=== PATIENT | female | born 1985 | race Caucasian/White ===

== ENCOUNTER 2022-05-13 14:22 | Emergency (ER) | payer OTHER, SELFPAY ==
[2022-05-13 14:27] VITALS: BP 115/70; PULSE 63; RESP 16; TEMP 36.6; O2SAT 100; BMI 24.7
--- NOTE | 2022-05-13 14:45 | DI.RAD.S_ITS ---
PROCEDURE: XR RIBS RT 2V INDICATIONS: pain with cough TECHNIQUE: 3 views of the right ribs were acquired. COMPARISON: None. FINDINGS: Surgical changes and devices: None. Bones and chest wall: No fractures or dislocations. No suspicious bony lesions. Overlying soft tissues appear unremarkable. Lungs and pleura: The visualized lung appears clear. No pleural effusions or pneumothorax are visible. IMPRESSION: Normal rib radiographs. No evidence of rib fracture. Approved by: Nithin Real M.D. on 05/13/2022 at 14:20
[2022-05-13 15:33] VITALS: BP 110/61; PULSE 53; RESP 15; O2SAT 95
[2022-05-13] MEDS: AMOXICILLIN 250 MG CAPSULE 1000 MG PO (16:39)
[2022-05-13] MEDS: DEXAMETHASONE 10 MG/ML VIAL PO (16:39)
[2022-05-13] MEDS: KETOROLAC 10 MG TABLET PO (16:39)
[2022-05-13 17:08] VITALS: BP 113/60; PULSE 64; RESP 17; O2SAT 98
--- NOTE | 2022-05-13 17:15 | ED_ITS ---
HPI - Chest Pain <LEONOR Valencia - Last Filed: 05/13/22 17:22> General Chief Complaint: Chest Pain Stated Complaint: Rt side rib fracture? maybe Time Seen by Provider: 05/13/22 15:35 Source: patient Mode of arrival: Ambulatory Limitations: no limitations History of Present Illness HPI narrative: This is a 28 year female presents to the emergency department complaining of right-sided rib pain which she has had for the last few weeks but states that she coughed yesterday in cause something to change were now she has sharp pain in this right lower lung space with deep inspiration. She denies shortness of breath, wheezing, history of asthma or COPD. She is a nonsmoker. States that she is had upper respiratory infection for the last few weeks, has had chest x- rays which were negative from pneumonia and has been using Tessalon Perles and meloxicam as needed for her symptoms. She endorses frequent cough which is productive, difficulty sleeping due to this. She denies any stool changes, dysuria urinary frequency, denies any nausea vomiting. Related Data Previous Rx's Medication Instructions Recorded amoxicillin 500 mg capsule 1,000 mg PO TID 5 days #30 caps 05/13/22 methocarbamol 500 mg tablet 500 mg PO BEDTIME PRN muscle 05/13/22 strain #14 tabs Allergies Allergy/AdvReac Type Severity Reaction Status Date / Time No Known Drug Allergies Allergy Verified 05/13/22 14:27 Review of Systems <LEONOR Valencia - Last Filed: 05/13/22 17:22> Review of Systems ROS Unobtainable: All systems reviewed & are unremarkable except as noted in HPI and below Patient History <LEONOR Valencia - Last Filed: 05/13/22 17:22> Social History Smoking Status: Never smoker Smoking Status: Never smoker Substance Use Type: does not use Exam <LEONOR Valencia - Last Filed: 05/13/22 17:22> Narrative Exam Narrative: Reviewed vitals signs and nursing notes. General: cooperative, comfortable, in no acute distress, well groomed HEENT: symmetrical facial expressions, moist mucous membranes Cardiovascular: regular rate and rhythm, no peripheral edema, warm extremities Respiratory: normal effort, diminished breath sounds to the right lower base anterior and posteriorly without crackles, rhonchi, wheezes, patient is able to speak in complete sentences, without wheezing, stridor, or tachypnea. She has mild tenderness to palpation. GI: abdomen soft, nontender to palpation, nondistended, without masses, rebound tenderness or exquisite tenderness with exam. MSK: moves all extremities, neurovascularly intact, no weakness, normal tone Skin: brisk capillary refill, without pallor or erythema Neuro: normal speech and cognition, A&O x3, ambulatory, clear speech Psych: mental status is grossly normal, congruent mood, normal affect, pleasant and cooperative Initial Vital Signs Initial Vital Signs: Vital Signs Temperature 97.9 F 05/13/22 14:27 Pulse Rate 63 05/13/22 14:27 Respiratory Rate 16 05/13/22 14:27 Blood Pressure 115/70 05/13/22 14:27 Pulse Oximetry 100 05/13/22 14:27 Oxygen Delivery Method 05/13/22 14:27 <Marcial Vasquez DO - Last Filed: 05/14/22 06:17> Initial Vital Signs Initial Vital Signs: Vital Signs Temperature 97.9 F 05/13/22 14:27 Pulse Rate 63 05/13/22 14:27 Respiratory Rate 16 05/13/22 14:27 Blood Pressure 115/70 05/13/22 14:27 Pulse Oximetry 100 05/13/22 14:27 Oxygen Delivery Method 05/13/22 14:27 Course <LEONOR Valencia - Last Filed: 05/13/22 17:22> Orders Ordered: Discontinued Medications Amoxicillin (Amoxicillin 250 Mg Capsule) 1,000 mg PO NOW ONE Stop: 05/13/22 16:07 Last Admin: 05/13/22 16:39 Dose: 1,000 mg Documented By: ESVIN Dexamethasone (Dexamethasone 10 Mg/Ml Vial) 10 mg PO NOW ONE Stop: 05/13/22 16:07 Last Admin: 05/13/22 16:39 Dose: 10 mg Documented By: ESVIN Ketorolac Tromethamine (Ketorolac 10 Mg Tablet) 10 mg PO NOW ONE Stop: 05/13/22 16:07 Last Admin: 05/13/22 16:39 Dose: 10 mg Documented By: ESVIN Vital Signs Vital signs: Vital Signs - 8 hr 05/13/22 14:27 05/13/22 15:33 05/13/22 17:08 Temperature 97.9 F Pulse Rate 63 53 L 64 Respiratory Rate 16 15 17 Blood Pressure 115/70 110/61 113/60 Pulse Oximetry 100 95 98 Oxygen Delivery Method Room Air Room Air <Marcial Vasquez DO - Last Filed: 05/14/22 06:17> Orders Ordered: Discontinued Medications Amoxicillin (Amoxicillin 250 Mg Capsule) 1,000 mg PO NOW ONE Stop: 05/13/22 16:07 Last Admin: 05/13/22 16:39 Dose: 1,000 mg Documented By: ESVIN Dexamethasone (Dexamethasone 10 Mg/Ml Vial) 10 mg PO NOW ONE Stop: 05/13/22 16:07 Last Admin: 05/13/22 16:39 Dose: 10 mg Documented By: ESVIN Ketorolac Tromethamine (Ketorolac 10 Mg Tablet) 10 mg PO NOW ONE Stop: 05/13/22 16:07 Last Admin: 05/13/22 16:39 Dose: 10 mg Documented By: ESVIN Vital Signs Vital signs: Vital Signs - 8 hr 05/13/22 14:27 05/13/22 15:33 05/13/22 17:08 Temperature 97.9 F Pulse Rate 63 53 L 64 Respiratory Rate 16 15 17 Blood Pressure 115/70 110/61 113/60 Pulse Oximetry 100 95 98 Oxygen Delivery Method Room Air Room Air MDM - Chest Pain <LEONOR Valencia - Last Filed: 05/13/22 17:22> Imaging Data Chest x-ray: Radiologist's Impression: PROCEDURE:? XR RIBS RT 2V ? INDICATIONS:? pain with cough ? TECHNIQUE:? 3 views of the right ribs were acquired.? ? COMPARISON:? None. ? FINDINGS:? ? Surgical changes and devices:? None.? ? Bones and chest wall:? No fractures or dislocations.? No suspicious bony lesions.? Overlying soft tissues appear unremarkable.? ? Lungs and pleura:? The visualized lung appears clear.? No pleural effusions or pneumothorax are visible.? ? IMPRESSION:? ? Normal rib radiographs.? No evidence of rib fracture. ? ? ? Approved by: Nithin Real M.D. on 05/13/2022 at 14:20? [facility] Narrative Medical decision making narrative: Chief Complaint: Right-sided rib pain and upper respiratory infection Independent historian: Patient Differential diagnoses include but are not limited to: Upper respiratory viral infection including COVID, influenza, and others,, pneumonia-bacterial or viral, croup, pertussis, asthma/reactive airway exacerbation, allergic reaction, acute otitis media, pharyngitis, bronchitis, GERD postnasal drip. Do not suspect underlying cardiopulmonary process. Patient is nontoxic appearing and not in need of emergent medical intervention. Patient is tolerating p.o., Other possible diagnosis' considered: viral URI, influenza, COVID, pharyngitis, GERD, bronchitis, asthma, pertussis, medication side effect, postnasal discharge, sinusitis, appendicitis, dehydration. Recommended rest, hydration, tylenol and NSAIDS for fever and/or pain. Return to ED for worsening symptoms such as SOB, chest pain, inability to take adequate oral fluids, fever, or productive cough. I have independently reviewed the patient's vital signs and nursing notes as well as prior records if available. Pertinent Imaging reviewed: Right rib x-ray is negative for rib fracture however on closer exam she has mild opacity/infiltrate to the right lower base where she has decreased breath sounds clinically. She has a productive cough, recent fever, chills, will treat for community-acquired pneumonia since she is been ill for the last 3 weeks or longer. Patient was treated with Decadron 10 mg, will treat pneumonia with high-dose amoxicillin t.i.d. for 5 days, she was prescribed methocarbamol for muscular pain, encourage disease Zyrtec, Tylenol and ibuprofen as needed for her symptoms otherwise. Stay hydrated, [facility]. Social considerations that may affect disposition: none Questions are addressed and there is agreement with the plan and for follow-up. Patient is appropriate for outpatient management. MIPS: This encounter doesn't have any diagnosis' associated with MIPS criteria. Discharge Plan Departure Patient Disposition: Home Clinical Impression: Costochondritis Pneumonia Qualifiers: Pneumonia type: due to unspecified organism Laterality: right Lung location: lower lobe of lung Qualified Code(s): J18.9 - Pneumonia, unspecified organism Instructions: Costochondritis, DI for Pneumonia -- Adult Activity Restrictions/Additional Instructions: *You have been diagnosed with rib pain which has developed into pneumonia. Please take the antibiotics for the next 5 days, okay to continue with ibuprofen/meloxicam but not take both at the same time for your pain. Okay to use Tylenol in addition to the meloxicam for pain. Use Mucinex for productive cough, takes Zyrtec each night for congestion. And see if your cough gets better. If this is a muscle strain, it can take a few weeks for this to get better sometimes but there no fractures. I hope you feel better soon please get clearance prior to going back to work. *What to do: *Please continue to take your regular medications as directed. [x ] New medication prescriptions sent to your pharmacy: [ [facility]] [ ] New medication written as a paper prescription [ ] No new medications given *Please follow up with your primary care provider in 2-3 days, call for an appointment. Let them know you were seen in the Emergency Department and that we asked that you be seen for follow-up. We will electronically transmit a record of today's note if your PCP is in our system *If you do not have a primary care provider please contact [phone] to establish care with one of the [facility] primary care providers. *Return to Emergency Department if you should have any new, worsening, or concerning symptoms, such as [fever greater than 101F, chills, worsening pain, persistent vomiting or other bothersome symptoms]. Prescriptions: New amoxicillin 500 mg capsule 1,000 mg PO TID 5 Days Qty: 30 0RF methocarbamol 500 mg tablet 500 mg PO BEDTIME PRN (Reason: muscle strain) Qty: 14 0RF Referrals: ProviderJeimy [Primary Care Provider] - Stand Alone Forms: Patient Portal/API <Marcial Vasquez DO - Last Filed: 05/14/22 06:17> [facility]ime Attestation: I was immediately available in the department for consultation. Documentation has been reviewed. I agree with assessment and plan.
== END 2022-05-13 17:10 | disposition home or self-care (01) ==
PROVIDERS: Emergency Provider Nurse Practitioner Critical Care Medicine
DX: J18.9 Pneumonia, unspecified organism (principal); M94.0 Chondrocostal junction syndrome [Tietze]
CPT/HCPCS: 71100; 99283; J1100

== ENCOUNTER 2022-12-30 20:39 | Emergency (ER) | payer OTHER, SELFPAY ==
[2022-12-30] VITALS (10 sets, daily range): BP systolic 95–148; BP diastolic 54–77; PULSE 50–74; RESP 14–23; TEMP 36.3; O2SAT 100; BMI 26.5
--- NOTE | 2022-12-30 20:57 | DI.RAD.S_ITS ---
PROCEDURE: XR CHEST 1V INDICATIONS: chest pain TECHNIQUE: One view of the chest was acquired. COMPARISON: None. FINDINGS: Surgical changes and devices: None. Lungs and pleura: Ill-defined opacity in right infrahilar region is seen. No pleural effusions or pneumothorax. Mediastinum: Mediastinal contours appear normal. Heart size is normal. Bones and chest wall: No suspicious bony lesions. Overlying soft tissues appear unremarkable. IMPRESSION: Finding is concerning for small right infrahilar infiltrate versus atelectasis. No pleural effusion or pneumothorax. Left lung is clear. Dictated by: Aly Segovia M.D. on 12/30/2022 at 21:45 Approved by: Aly Segovia M.D. on 12/30/2022 at 21:45
[2022-12-30 21:06] LABS: Prothrombin Time 11.9 SECONDS (10.1-12.7)
[2022-12-30 21:08] LABS: PTT Partial Thromboplastin Tim 29 SECONDS (26-36)
[2022-12-30 21:09] LABS: Alanine Aminotransferase 16 IU/L (<35); Albumin 4.4 g/dL (3.5-5.0); Albumin Globulin Ratio 1.2 (1.0-2.8); Alkaline Phosphatase 53 U/L (38-126); Aspartate Aminotransferase 22 IU/L (14-36); BUN Creatinine Ratio 14.6 (6-22); Bilirubin Total 0.2 mg/dL (0.2-1.3); Blood Urea Nitrogen 12 mg/dL (7-17); Calcium 9.6 mg/dL (8.4-10.2); Carbon Dioxide 27 mmol/L (22-32); Chloride 104 mmol/L (98-107); Creatine Kinase 81 U/L (30-135); Estimated Glomerular Filt Rate > 60 mL/min (>60); Globulin 3.6 g/dL (1.7-4.1); Glucose 79 mg/dL (70-100); HEMOLYSIS 19 (0-50); Lipase 289 U/L (23-300); Potassium 4.3 mmol/L (3.4-5.1); Sodium 139 mmol/L (137-145)
[2022-12-30 21:10] LABS: D Dimer < 215 ng/ml (<500)
[2022-12-30 21:16] LABS: Add Manual Diff / Slide Review NO; Basophils Absolute Auto 0 /uL (0-100); Basophils Percent Auto 0.6 % (0-2); Eosinophils Absolute Auto 100 /uL (0-450); Eosinophils Percent Auto 1.5 % (2-4); Hematocrit 35.7 % (36-46); Hemoglobin 12.4 g/dL (12.0-16.0); Lymphocytes Absolute Auto 1800 /uL (1100-4500); Lymphocytes Percent Auto 38.5 % (25-40); Mean Corpuscular HGB Conc 34.9 % (30-36); Mean Corpuscular Hemoglobin 32.2 PG (26-34); Mean Corpuscular Volume 92.3 fL (80-100); Monocytes Absolute Auto 600 /uL (0-900); Monocytes Percent Auto 11.8 % (3-14); Neutrophils Absolute Auto 2200 /uL (1500-7000); Neutrophils Percent Auto 47.6 % (50-75); Platelet Count 262 X10^3/uL (150-400); Red Blood Cell Count 3.86 X10^6/uL (4.0-5.2); Red Cell Distribution Width 13.2 % (11.6-14.8); White Blood Cell Count 4.7 X10^3/uL (4.5-11.0)
[2022-12-30 21:21] LABS: NT-proBNP (BNP-Adult 18+) 27 pg/mL (<125); Troponin I < 0.012 ng/mL (0.01-0.034)
[2022-12-30 21:32] LABS: COVID19 -Nasal RAPID Negative (Negative)
[2022-12-31] VITALS: BP 111/59; PULSE 48; O2SAT 99
--- NOTE | 2022-12-31 00:11 | ED.CHESTPAIN ---
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 Patient is currently on indomethacin, Tylenol Arthritis daily and started hydroxychloroquine fairly recently. Patient presents this evening with substernal chest pain localized without any radiation. Not better or worse with any other interventions lasted about 4 hours and then an about an hour prior to arrival became more persistent. Patient states she is had chest pain in the past but the duration was little bit atypical. She states no shortness of breath, no pleuritic pain. No fevers or chills. No cough cold or congestion. No nausea or vomiting. No issues with bowel movements or urination, no dysuria urgency or frequency no swelling in her extremities. Patient states she is had a tubal ligation no other surgeries. No known drug allergies. No tobacco, alcohol or illicit. Her primary care is through [facility]. She is seeing rheumatology [facility]. She states she has not received a formal diagnosis, the currently suspect Sjogren's and Stone's. Patient did try Tums at home without any improvement. She did not take any other additional pain medications this evening. She did take her normal indomethacin 50 mg and Tylenol arthritis this evening. No oral contraceptives or estrogen. No reported family history. Related Data Previous Rx's Medication Instructions Recorded methocarbamol 500 mg tablet 500 mg PO BEDTIME PRN muscle 05/13/22 strain #14 tabs Allergies Allergy/AdvReac Type Severity Reaction Status Date / Time No Known Drug Allergies Allergy Verified 05/13/22 14:27 Review of Systems Review of Systems ROS Unobtainable: All systems reviewed & are unremarkable except as noted in HPI and below Patient History Social History Smoking Status: Never smoker Smoking Status: Never smoker Substance Use Type: does not use Exam Narrative Exam Narrative: GENERAL: Alert and oriented x three, female in mild distress HEENT: Head normocephalic, atraumatic, EOMI, pupils reactive, face symmetric, moist mucous membranes NECK: Supple, full range of motion CARDIOVASCULAR: Regular rate and rhythm without murmurs, rubs or gallops. No reproducible chest pain. No JVD. No swelling bilateral lower extremities. RESPIRATORY: Breath sounds equal bilaterally, no wheezes rales or rhonchi. No tachypnea, no accessory muscle use. Speaks in full sentences. ABDOMEN: Soft, nontender. Normoactive bowel sounds all 4 quadrants. No guarding or rebound, rigidity, no mass : No CVA tenderness EXTREMITIES: Normal range of motion, no clubbing or edema. Neurovascularly intact. 2+ pulses bilateral lower extremities. NEUROLOGICAL: Cranial nerves II through XII grossly intact. Moving all extremities SKIN: Warm, dry, no petechiae, no rashes or lesions. Initial Vital Signs Initial Vital Signs: Vital Signs Temperature 97.4 F L 12/30/22 20:45 Pulse Rate 74 12/30/22 20:45 Respiratory Rate 22 12/30/22 20:45 Blood Pressure 148/77 H 12/30/22 20:45 Pulse Oximetry 100 12/30/22 20:45 Oxygen Delivery Method Room Air 12/30/22 20:45 Scores HEART Score Heart Score history: Slightly Suspicious Heart Score EKG: Normal Heart Score Age: < 45 years old Heart Score risk factors: No known risk factors Heart Score troponin: < or = to normal limit Heart Score Total: 0 PERC Score Age greater than or equal to 50 years: No Heart rate greater than or equal to 100 bpm: No Room Air O2 Sat less than 95%: No Unilateral leg swelling: No Recent trauma or surgery: No Hemoptysis: No Prior PE or DVT: No Hormone Use: No Total PERC Score: 0 Course Orders Ordered: ED Orders 12/30/22 20:49 Complete Blood Count AUTO DIFF Stat Comprehensive Metabolic Panel Stat D Dimer Stat Lipase Stat NT-proBNP (BNP-Adult 18+) Stat PTT Partial Thromboplastin Benja Stat Prothrombin Time INR Stat Troponin & CK Cardiac Panel Stat 12/30/22 20:54 EKG-12 Lead Stat 12/30/22 20:57 XR chest 1V Stat 12/30/22 21:02 COVID19 -Nasal RAPID Urgent Vital Signs Vital signs: Vital Signs - 8 hr 12/30/22 20:45 12/30/22 20:53 12/30/22 21:00 Temperature 97.4 F L Pulse Rate 74 64 Respiratory Rate 22 22 Blood Pressure 148/77 H 128/62 Pulse Oximetry 100 100 Oxygen Delivery Method Room Air 12/30/22 21:00 12/30/22 21:30 12/30/22 21:31 Temperature Pulse Rate 58 L 54 L 53 L Respiratory Rate 23 16 16 Blood Pressure Pulse Oximetry 100 100 100 Oxygen Delivery Method 12/30/22 21:31 12/30/22 22:00 12/30/22 22:00 Temperature Pulse Rate 55 L Respiratory Rate 16 Blood Pressure 102/62 107/57 L Pulse Oximetry 100 Oxygen Delivery Method 12/30/22 22:30 12/30/22 22:31 12/30/22 22:31 Temperature Pulse Rate 54 L 54 L Respiratory Rate 17 15 Blood Pressure 95/54 L Pulse Oximetry 100 100 Oxygen Delivery Method 12/30/22 23:00 12/30/22 23:00 12/30/22 23:30 Temperature Pulse Rate 51 L Respiratory Rate 18 Blood Pressure 95/58 L 108/57 L Pulse Oximetry 100 Oxygen Delivery Method 12/30/22 23:30 12/31/22 00:00 12/31/22 00:00 Temperature Pulse Rate 50 L 48 L Respiratory Rate 14 Blood Pressure 111/59 L Pulse Oximetry 100 99 Oxygen Delivery Method 12/31/22 00:30 12/31/22 00:30 12/31/22 00:36 Temperature 97.5 F L Pulse Rate 53 L Respiratory Rate Blood Pressure 108/56 L Pulse Oximetry 99 Oxygen Delivery Method MDM - Chest Pain Lab Data 12/30/22 20:49 12/30/22 20:49 Labs: Lab Results 12/30/22 12/30/22 Range/Units 20:49 21:02 WBC 4.7 (4.5-11.0) X10^3/uL RBC 3.86 L (4.0-5.2) X10^6/uL Hgb 12.4 (12.0-16.0) g/dL Hct 35.7 L (36-46) % MCV 92.3 (80-100) fL MCH 32.2 (26-34) PG MCHC 34.9 (30-36) % RDW 13.2 (11.6-14.8) % Plt Count 262 (150-400) X10^3/uL Neut % (Auto) 47.6 L (50-75) % Lymph % (Auto) 38.5 (25-40) % Boundary % (Auto) 11.8 (3-14) % Eos % (Auto) 1.5 L (2-4) % Baso % (Auto) 0.6 (0-2) % Neut # (Auto) 2200 (3334-6407) /uL Lymph # (Auto) 1800 (6454-8984) /uL Boundary # (Auto) 600 (0-900) /uL Eos # (Auto) 100 (0-450) /uL Baso # (Auto) 0 (0-100) /uL PT 11.9 (10.1-12.7) SECONDS INR 1.0 (0.9-1.3) APTT 29 (26-36) SECONDS D-Dimer < 215 (<500) ng/ml Sodium 139 (137-145) mmol/L Potassium 4.3 (3.4-5.1) mmol/L Chloride 104 (98-107) mmol/L Carbon Dioxide 27 (22-32) mmol/L BUN 12 (7-17) mg/dL Creatinine 0.82 (0.52-1.04) mg/dL Estimated GFR > 60 (>60) mL/min BUN/Creatinine Ratio 14.6 (6-22) Glucose 79 (70-100) mg/dL Calcium 9.6 (8.4-10.2) mg/dL Total Bilirubin 0.2 (0.2-1.3) mg/dL AST 22 (14-36) IU/L ALT 16 (<35) IU/L Alkaline Phosphatase 53 (38-126) U/L Total Creatine Kinase 81 (30-135) U/L Troponin I < 0.012 (0.01-0.034) ng/mL NT-Pro-B Natriuret Pep 27 (<125) pg/mL Total Protein 8.0 (6.3-8.2) g/dL Albumin 4.4 (3.5-5.0) g/dL Globulin 3.6 (1.7-4.1) g/dL Albumin/Globulin Ratio 1.2 (1.0-2.8) Lipase 289 (23-300) U/L SARS-CoV-2 (PCR) Negative (Negative) Imaging Data Chest x-ray: Radiologist's Impression: [address] [id number] XRay Report Signed Patient: Magdalena Patiño MR#: [id number] : 1985 Acct:[id number] Age/Sex: 37 / F Date of Service: 12/30/22 Loc: ED Accession Number: [id number] Procedure: XR chest 1V Ordering Provider: Kaelyn Davis D.O. PROCEDURE: XR CHEST 1V INDICATIONS: chest pain TECHNIQUE: One view of the chest was acquired. COMPARISON: None. FINDINGS: Surgical changes and devices: None. Lungs and pleura: Ill-defined opacity in right infrahilar region is seen. No pleural effusions or pneumothorax. Mediastinum: Mediastinal contours appear normal. Heart size is normal. Bones and chest wall: No suspicious bony lesions. Overlying soft tissues appear unremarkable. IMPRESSION: Finding is concerning for small right infrahilar infiltrate versus atelectasis. No pleural effusion or pneumothorax. Left lung is clear. Dictated by: Aly Segovia M.D. on 12/30/2022 at 21:45 Approved by: Aly Segovia M.D. on 12/30/2022 at 21:45 ECG Data Attestation: I personally reviewed and interpreted this ECG as follows: Prior ECG tracings: available for review Interpretation: Sinus bradycardia rate of 57 I did 90 QRS is [address]TC [address] No acute ST elevation depression noted. No priors for comparison. MDM Narrative Medical decision making narrative: 37-year-old female presents with complaint of substernal chest pain she is had intermittently in the past but was more persistent this evening. Has since resolved. Started about 3:00 a.m. in the afternoon patient's EKG shows no acute changes no comparison for prior. CBC , coags and D-dimer do not show acute cause, CMP is negative lipase negative troponin negative with a BNP of 27. COVID swab is negative. Chest x-ray shows atelectasis versus infiltrate in the right but pain is or was very localized to the substernal area. Making me less suspicious patient has not had any infectious symptoms or other changes suspect more atelectasis. Patient states symptoms have resolved they did ask about reflux she is on indomethacin daily this could contribute but she did try Tums at home without any improvement. Patient's troponin is more than 6 hours after initial onset of pain which has been persistent and constant making cardiac source unlikely. Discharge Plan Departure Patient Disposition: Home Clinical Impression: Chest pain Instructions: DI for Chest Pain Activity Restrictions/Additional Instructions: Follow-up with your physician for recheck. Your workup today did not show any acute changes, discuss if you need additionally workup with your a/c tech or primary care. Please return for new or worsening symptoms, lightheadedness or passing out, shortness of breath, persistent vomiting, fevers, no abdominal back or flank pain, black or bloody stools or other new or concerning changes. Prescriptions: No Action methocarbamol 500 mg tablet 500 mg PO BEDTIME PRN (Reason: muscle strain) Qty: 14 0RF Referrals: ProviderJeimy [Primary Care Provider] - Stand Alone Forms: Patient Portal/API
[2022-12-31 00:30] VITALS: BP 108/56; PULSE 53; O2SAT 99
[2022-12-31 00:36] VITALS: TEMP 36.4
== END 2022-12-31 00:38 | disposition home or self-care (01) ==
PROVIDERS: Emergency Provider Emergency Medicine
DX: R07.9 Chest pain, unspecified (principal); Z20.822 Contact with and (suspected) exposure to COVID-19
CPT/HCPCS: 36415; 71045; 80053; 82550; 83690; 83880; 84484; 85025; 85379; 85610; 85730; 87635; 93005; 99284; C9803

== ENCOUNTER → 2023-05-27 | Outpatient (CLI) | payer OTHER, SELFPAY ==
--- NOTE | 2023-05-27 07:42 | DI.ECHO.S_ITS ---
[facility]---------+ [facility] +---------+ : : [address] : : : : [id number] : : : : Phone: [phone]---------+ Echocardiogram Report + + :Name: DOMINIK MATA Study Date: 05/27/2023 Height: 62 in : :[facility] ReadingLocation: Weight: 135 lb : : Gender: Female BSA: 1.6 m2 : :: 1985 Age: 37 yrs BP: 114/82 mmHg: :Reason For Study: SHORTNESS OF BREATH : :Ordering Physician: GARY, : :SHAHNAZ Spears Performed By: Bubba West : :Referring: SHAHNAZ TOUSSAINT : + + Interpretation Summary The ejection fraction is estimated to be 60-65%. Diastolic parameters suggest probable normal left ventricular diastolic function and normal filling pressures. The right ventricle is normal in size and function. No significant valvular abnormalities. Pulmonary artery pressures cannot be estimated because of the lack of a measurable TR jet velocity but the IVC suggests a CVP of around 3 mmHg. Procedure: A two-dimensional transthoracic echocardiogram with color flow and Doppler was performed. The study quality was technically adequate. There is no prior echocardiogram noted for this patient. The patient was in normal sinus rhythm during the exam. The heart rate ranged between 56-86 bpm during the study. Left Ventricle: The left ventricle is normal in size and wall thickness. The ejection fraction is estimated to be 60-65%. Diastolic parameters suggest probable normal left ventricular diastolic function and normal filling pressures. Right Ventricle: The right ventricle is normal in size and function. Atria: The left atrial size is normal. Right atrial size is normal. The interatrial septum grossly appears intact with no obvious evidence for an atrial septal defect. Mitral Valve: The mitral valve is normal in structure and function. There is no mitral valve stenosis. There is trace mitral regurgitation. Aortic Valve: The aortic valve is trileaflet. There is no aortic valve stenosis. No aortic regurgitation is present. Tricuspid Valve: The tricuspid valve is normal in structure and function. There is no tricuspid stenosis. There is trace tricuspid regurgitation. Pulmonary artery pressures cannot be estimated because of the lack of a measurable TR jet velocity but the IVC suggests a CVP of around 3 mmHg. Pulmonic Valve: The pulmonic valve is normal in structure and function. There is no pulmonic valvular stenosis. There is no pulmonic valvular regurgitation. Great Vessels: The aortic root is normal size. The dimensions of the ascending aorta are normal. The IVC is of normal diameter and collapses greater than 50% with a sniff. This suggests a low right atrial pressure of 3 mm Hg. Pericardium/ Pleura There is no pericardial effusion. There is no pleural effusion. MMode/2D Measurements & Calculations LVIDd: 4.7 cm LVOT diam: 1.9 cm LVIDs: 3.1 cm Ao root diam: 2.6 cm FS: 33.6 % asc Aorta Diam: 2.4 cm IVSd: 0.86 cm Ao Arch Diam (Prox Trans): 2.3 cm LVPWd: 1.0 cm LV gong. diameter/BSA (cm/m^2): 2.9 LV sys. diameter/BSA (cm/m^2): 1.9 LA A2 area: 16.2 cm2 RA long axis: 4.8 cm LA A4 area: 17.9 cm2 RA area: 13.1 cm2 LA length (vol): 5.0 cm RA vol: 30.8 ml LA vol: 49.8 ml RA : 19.0 ml/m2 LA vol index: 30.8 ml/m2 IVC diam: 1.8 cm RVD1 (basal): 3.2 cm RVD2 (mid): 2.7 cm TAPSE: 3.0 cm Doppler Measurements & Calculations Ao V2 max: 142.3 cm/sec LVOT Max Wayne: 107.6 cm/sec Ao V2 mean: 102.1 cm/sec LV V1 max P.6 mmHg Ao max P.1 mmHg LV V1 VTI: 24.9 cm Ao mean P.6 mmHg MAHI(I,D): 2.2 cm2 Ao V2 VTI: 32.6 cm MAHI(V,D): 2.2 cm2 sev ratio: 0.76 MAHI indexed to BSA (cm^2/m^2): 1.4 MV E max wayne: 76.5 cm/sec TR max wayne: 197.2 cm/sec MV A max wayne: 55.4 cm/sec TR max P.7 mmHg MV E/A: 1.4 PA V2 max: 85.0 cm/sec Med Peak E' Wayne: 12.2 cm/sec PA V2 mean: 61.2 cm/sec E/E' med: 6.3 PA mean P.6 mmHg Lat Peak E' Wayne: 16.3 cm/sec PA pr(Accel): 25.9 mmHg E/E' lat: 4.7 E/e' average: 5.5 MV dec time: 0.18 sec [facility] 72.2 ml Reading Physician:12:33 PM
--- NOTE | 2023-05-27 11:25 | DI.NM.S_ITS ---
DATE OF SERVICE: 05/27/2023 PROCEDURE PERFORMED: Exercise treadmill stress test without imaging. ORDERING PROVIDER: Shahnaz Toussaint M.D. INDICATIONS: The patient is a 37-year-old female with atypical chest discomfort and exertional dyspnea. FINDINGS: 1. The patient was able to exercise for 12 minutes 49 seconds on a standard Miguel protocol, suggesting excellent exercise capacity with an ERLIN of -42%, achieving 12.8 METs. 2. She had a normal heart rate and blood pressure response to exercise, achieving a maximum heart rate of 179 bpm (99% of her predicted maximum). 3. She had no chest discomfort or other anginal symptoms. 4. Her resting ECG is normal with normal sinus rhythm and normal ST segments. There are no obvious ST-segment shifts with exercise, although motion artifact makes definitive assessment challenging. However, there are no concerning ST-segment abnormalities 1 minute into recovery, although a fairly profound sinus arrhythmia is noted in recovery, but no other arrhythmias. IMPRESSION: 1. Normal exercise treadmill stress test for ischemia. 2. Excellent exercise capacity without angina or arrhythmias except for significant sinus arrhythmia noted in recovery. Magdalena Patiño - /jackson/lp doc#: [id number]/job#: [id number] dd: 05/27/2023 10:49:00 dt: 05/27/2023 11:15:00 DICTATING /COPIES TO: Kal Licea MD COPIES MNE: MAGI;
== END ==
LOC: RAD 07:41
PROVIDERS: Referring Provider Internal Medicine Cardiovascular Disease; Visit Provider Internal Medicine Cardiovascular Disease
DX: R06.02 Shortness of breath (principal); R07.89 Other chest pain; R06.00 Dyspnea, unspecified
CPT/HCPCS: 93017; 93306